=== PATIENT | female | born 1990 | race Caucasian/White ===

== ENCOUNTER 2020-04-24 21:53 | Emergency (ER) | payer OTHER ==
[~2020-04-24] VITALS: Ht 167.6 cm; Wt 102.5 kg
[2020-04-24] MEDS ORDERED: MAG HYDROX/AL HYDROX/SIMETH 30 ML LIQUID UDC PO ONE (22:15)
[2020-04-24] MEDS ORDERED: LIDOCAINE VISCUS 2% 15 ML UDC MM ONE (22:15)
[2020-04-24] MEDS ORDERED: FAMOTIDINE. 20 MG/2 ML VIAL IV ONE ×2 (22:15→22:29)
[2020-04-24] MEDS ORDERED: ASPIRIN 81 MG TAB.CHEW PO ONE (22:15)
[2020-04-24] MEDS ORDERED: ASPIRIN 81 MG TAB.CHEW ONE (22:27)
[2020-04-24] MEDS ORDERED: MAG HYDROX/AL HYDROX/SIMETH 30 ML LIQUID UDC ONE (22:28)
[2020-04-24 22:29] LABS: BASOPHILS # (AUTO) 0.1 K/uL (0.0-8.0); BASOPHILS % (AUTO) 0.7 % (0.0-2.0); EOSINOPHILS # (AUTO) 0.1 K/uL (0.0-0.7); EOSINOPHILS % (AUTO) 0.9 % (0.0-7.0); HEMATOCRIT 39.5 % (31.2-41.9); LYMPHOCYTES # (AUTO) 3.6 K/uL (20.0-40.0); LYMPHOCYTES % (AUTO) 30.2 % (20.5-51.5); MEAN CORPUSCULAR HEMOGLOBIN 30.4 uug (24.7-32.8); MEAN CORPUSCULAR HGB CONC 33 g/dL (32.3-35.6); MEAN CORPUSCULAR VOLUME 92.3 fL (75.5-95.3); MONOCYTES # (AUTO) 0.8 K/uL (2.0-10.0); MONOCYTES % (AUTO) 6.6 % (0.0-11.0); NEUTROPHILS # (AUTO) 7.3 K/uL (1.8-8.9); NEUTROPHILS % (AUTO) 61.6 % (38.5-71.5); PLATELET COUNT (AUTO) 362 K/uL (179-408); RED BLOOD CELL COUNT(AUTO) 4.28 MIL/uL (3.63-4.92); WHITE BLOOD COUNT (AUTO) 11.8 K/uL (3.8-11.8)
[2020-04-24] MEDS ORDERED: LIDOCAINE VISCUS 2% 15 ML UDC ONE (22:29)
[2020-04-24 22:36] LABS: CREATININE 0.9 mg/dL (0.6-1.3); POTASSIUM 3.7 mmol/L (3.5-5.1)
--- NOTE | 2020-04-24 22:45 | NUR ---
Pt A&Ox4, ambulatory, breathing normal, speech coherent, c/o midchest ache tonight, no prior cardiac hx reported.
[2020-04-24] MEDS ORDERED: IV NORMAL SALINE 250 ML IV ONE (23:26)
[2020-04-24] MEDS ORDERED: SWABABLE VALVE TRANSFER SET EA MC ONE (23:26)
[2020-04-24] MEDS ORDERED: IOHEXOL 300MG/ML 100 ML INFUS..BTL ONE (23:26)
[2020-04-24 23:32] LABS: *BILIRUBIN,URIN NEGATIVE (NEGATIVE); *BLOOD, URINE 1+ (NEGATIVE); *CLARITY,URINE CLEAR (CLEAR); *KETONES,URINE NEGATIVE (NEGATIVE); *UROBILINOGEN,URINE 0.2 E.U./dl (NORMAL); LEUKOCYTE ESTERASE ,URINE 1+ (NEGATIVE); NITRITE, URINE NEGATIVE (NEGATIVE); UGLUCOSE NEGATIVE (NEGATIVE)
[2020-04-24 23:46] LABS: *COLOR,URINE STRAW (YELLOW); BACTERIA,URINE NONE SEEN /HPF (NONE SEEN); RBC,URINE 0-3 /HPF (0-3); SQUAMOUS EPITHELIAL CELL,UR FEW /HPF (NONE SEEN)
[2020-04-25] MEDS ORDERED: FAMO-132 PO (00:30)
--- NOTE | 2020-04-25 00:43 | NUR ---
Pt appears comfortable, ready to be discharged. Pt reports chest pain is decreased after the medication administration in the ED tonight.
[2020-04-25 00:46] VITALS: BP 138/88
== END 2020-04-25 00:47 | disposition home or self-care (01) ==
LOC: ER 21:55
DX: R07.9 Chest pain, unspecified (principal); R94.31 Abnormal electrocardiogram [ECG] [EKG]; R79.1 Abnormal coagulation profile
CPT/HCPCS: 36415; 71045; 71275; 80048; 81001; 83690; 84484; 85025; 85379; 87086; 93005; 99285; J3490; Q9967; 70030-TC; A4663; J7050